=== PATIENT | female | born 1965 | race Caucasian/White ===

== ENCOUNTER 2016-10-11 15:08 | Emergency (ER) | payer OTHER ==
[~2016-10-11] VITALS: Ht 160 cm; Wt 71.7 kg
[~2016-10-11 15:08] MED LIST: ARIPIPRAZOLE10 MG PO; ATIVAN0.5 MG PO; CLONAZEPAM0.5 MG PO; CYCLOBENZAPRINE10 M1 PO; DEPAKOTE ER500 MG PO; HYDROXYZINE PAM50 MG PO; LEVOTHYROXINE75 MCG PO; METHADONE10 MG/5 ML PO; MOBIC7.5 MG PO; NAPROXEN500 MG PO; NEURONTIN300 M1 PO; SEROQUEL XR300 MG PO; SEROQUEL50 MG PO; TRAMADOL HCL50 M1 PO
--- NOTE | 2016-10-11 16:51 | ED GI/GU/ABDOMINAL COMPLAINT ---
History of Present Illness General Chief Complaint: Female Urogenital Problems Stated Complaint: BLADDER HURTS ALL THE TIME PER PT Source: patient Exam Limitations: no limitations Vital Signs & Intake/Output Vital Signs & Intake/Output Vital Signs Date Time Temp Pulse Resp B/P B/P Pulse O2 O2 Flow FiO2 Mean Ox Delivery Rate 10/11 1704 97.8 78 20 110/78 98 Room Air 10/11 1516 97.1 82 18 112/77 97 Room Air Allergies Coded Allergies: Penicillins (HIVES 10/11/16) carbamazepine (From TEGRETOL) (MORE SEIZURES 10/11/16) erythromycin base (VOMITING 10/11/16) latex (RASH 10/11/16) phenytoin (From DILANTIN) (HIVES 10/11/16) Reconcile Medications Buprenorphine (Buprenorphine HCl) 8 MG TAB.SUBL 1 TAB SL BID MENTAL HEALTH ( Reported) Clonazepam 0.5 MG TABLET 1 TAB PO TID ANXIETY (Reported) Dexlansoprazole (Dexilant) 60 MG KOREY.BP 1 CAP PO DAILY GI (Reported) Docusate Sodium (Stool Softener) 50 MG CAPSULE 1 TAB PO BID PRN CONSTIPATION Escitalopram Oxalate 20 MG TABLET 1 TAB PO DAILY DEPRESSION (Reported) Gabapentin (Neurontin) 300 MG CAPSULE 1 CAP PO BID SEIZURES (Reported) Gabapentin 600 MG TABLET 1 TAB PO QPM SEIZURES (Reported) Ibuprofen 600 MG TABLET 1 TAB PO PRN PAIN (Reported) with food Levothyroxine Sodium 75 MCG TABLET 1 TAB PO DAILY THYROID (Reported) Magnesium Citrate (Citrate Of Magnesia) 300 ML SOLUTION 296 ML PO ONCE CONSTIPATION Meloxicam 7.5 MG TABLET 1 TAB PO DAILY PAIN (Reported) Topiramate 100 MG TABLET 1 TAB PO DAILY IMPULSES (Reported) Trazodone HCl 150 MG TABLET 1 TAB PO QPM SLEEP (Reported) Triage Note: PT STATES THAT FOR THE PAST MONTH SHE HAS BEEN HAVING RLQ PAIN THAT RADIATES INTO HER BACK, CLEAR VAGINAL DISCHARGE, DENIES ITCHING OR ODOR. WENT TO DR ALEXANDER SNELL AND HE DID VAGINAL US AND URINE, PT STATES THAT SHE WAS STARTED ON ABT FOR BLADDER INFECTION. PT STATES THAT SHE WAS SUPOSSED TO GO FOR BLOOD WORK AND NEVER DID. PT WOULD LIKE TO BE TESTED FOR HPV Triage Nurses Notes Reviewed? yes ? N Is pt currently ? No Onset: Gradual Duration: constant, getting worse Quality/Severity: sharpness, severe, stabbing Severity Numbers: 10 Location: right lower quadrant Radiation: no radiation Activities at Onset: none HPI: Patient is a 51-year-old female who presents emergency room with concerns of right lower quadrant pain that has progressively gotten worse for the past month. Patient does state that she was recently evaluated by her p EAR NOSE THROAT SURGEON Dr. Barcenas which he obtained a transvaginal ultrasound with results PATIENT: RAMAKRISHNA MARCELO PRESENT AGE: 51 PATIENT ACCOUNT NO: [id number] : 65 LOCATION: [facility] ORDERING PHYSICIAN: COLBY DESHPANDE MD SERVICE DATE: 09/22/16 EXAM TYPE: US - US-TRANSVAGINAL EXAM: Pelvic Ultrasound CLINICAL INDICATION: Pelvic pain. History of ovarian cysts. COMPARISON: Pelvic ultrasound 12/20/2014 TECHNIQUE: The pelvis was evaluated using transabdominal and transvaginal imaging. FINDINGS: The uterus measures 5.5 x 3.0 x 4.3 cm in longitudinal by AP by transverse dimension. The endometrial stripe is not thickened and measures 0.2 cm. Within the posterior uterine fundus is a 2.5 x 1.4 x 2.3 cm fibroid (previously 1.9 x 1.5 x 2.2 cm). The cervix measures approximately 2.4 cm in length. A subcentimeter nabothian cyst is appreciated. The right ovary measures approximately 1.6 x 1.2 x 1.0 cm. 1.1 cm right ovarian cyst. The left ovary was not clearly visualized. There are no abnormal adnexal masses. There is a small amount of free fluid in the pelvis. IMPRESSION: 1. Single 2.5 cm posterior fundal fibroid. Unremarkable endometrial thickness. 2. Small right ovarian cyst. 3. The left ovary was not clearly visualized. Patient states that the right lower quadrant pain has been so significant that she's S friends for narcotics with mild relief of symptoms. Patient denies any fever chills, vaginal bleeding or discharge dysuria hematuria. Patient states that she has chronic back pain and right hip pain with no change in symptoms. (MARCIANO ROGER) Past History Travel History Traveled to [place] past 21 day No Medical History Any Pertinent Medical History? see below for history Neurological: seizure, TBI EENT: cataracts Cardiovascular: CPR DONE ON ME X 3 "HOLE IN MY HEART" BORDERLINE CHOLESTEROL Respiratory: asthma, emphysema Gastrointestinal: ACID REFLUX Hepatic: hepatitis C Renal: NONE Musculoskeletal: NONE Psychiatric: bipolar disease, depression, PTSD Endocrine: hypothyroidism Blood Disorders: anemia Cancer(s): NONE APPAREL MERCHANDISER/Reproductive: fibroid, "I CAN'T HAVE BABIES" Surgical History Surgical History: UTERINE FIBROIDS Psychosocial History Who do you live with Significant Other What is your primary language Setswana Tobacco Use: Never used ETOH Use: denies use Illicit Drug Use: denies illicit drug use Family History Hx Contributory? No (MARCIANO ROGER) Review of Systems Review of Systems Constitutional: Reports: see HPI. EENTM: Reports: no symptoms. Respiratory: Reports: no symptoms. Cardiovascular: Reports: no symptoms. GI: Reports: see HPI, abdominal pain. Genitourinary: Reports: no symptoms. Musculoskeletal: Reports: see HPI, back pain. Skin: Reports: no symptoms. Neurological/Psychological: Reports: no symptoms. Hematologic/Endocrine: Reports: no symptoms. Immunologic/Allergic: Reports: no symptoms. All Other Systems: Reviewed and Negative (MARCIANO ROGER) Physical Exam Physical Exam General Appearance: no apparent distress, alert, comfortable Gastrointestinal: normal bowel sounds, soft, MODERATE RIGHT LOWER QUADRANT POINT TENDERNESS NOTED NO REBOUND TENDERNESS NO PERITONEAL SIGNS Comments: Well-developed well-nourished person in no acute distress HEENT: Normal EENT exam, Neck: Supple, no lymphadenopathy, normal range of motion without pain or tenderness Back: Nontender, no CVA tenderness. Cardiovascular: Regular rate and rhythms no murmurs rubs or gallops, normal JVP Respiratory: Chest nontender. No respiratory distress.breath sounds clear to auscultation bilaterally Extremity: No edema, no calf tenderness to palpation, normal and equal pulses. Neuro: Alert oriented x3, motor sensory normal, Skin: No appreciable rash on exposed skin, skin is warm and dry. Psych: Mood and affect is normal, memory and judgment is normal. Core Measures ACS in differential dx? No Severe Sepsis Present: No Septic Shock Present: No (MARCIANO ROGER) Progress Differential Diagnosis: AAA, AMI, appendicitis, biliary colic, bowel obstruction , colon cancer, cholecystitis, diverticulitis, ectopic , endometritis, esophageal varices, gastritis, hepatitis, hernia, hemorrhoids, ischemic bowel, inflamm bowel dis, intrauterine , kidney stone, Shagufta-Agatha tear, ovarian cyst, ovarian torsion, pancreatitis, PID/cervicitis, peptic ulcer, PUD/ GERD, perforated viscous, SBO, threatened AB, UTI/pyelo Plan of Care: Orders Procedure Date/time Status LIPASE 10/11 164 Complete COMPREHENSIVE METABOLIC PANEL 10/11 164 Complete CBC WITHOUT DIFFERENTIAL 10/11 1648 Complete AMYLASE 10/11 1648 Complete URINALYSIS 10/11 1521 Complete Laboratory Tests 10/11/16 1702: Anion Gap 9, Estimated GFR > 60, BUN/Creatinine Ratio 17.5, Glucose 116 H, Calcium 9.2, Total Bilirubin 0.3, AST 32, ALT 48, Alkaline Phosphatase 76, Total Protein 7.1, Albumin 4.1, Globulin 3.0, Albumin/Globulin Ratio 1.4, Amylase 30, Lipase 77, CBC w Diff NO MAN DIFF REQ, RBC 4.66, MCV 80.1 L, MCH 26.0 L, RDW 14.7 H, MPV 9.3, Gran % 50.6, Lymphocytes % 38.1, Monocytes % 6.7, Eosinophils % 4.2, Basophils % 0.4, Absolute Granulocytes 3.1, Absolute Lymphocytes 2.3, Absolute Monocytes 0.4, Absolute Eosinophils 0.3, Absolute Basophils 0, PUBS MCHC 32.4 L 10/11/16 1530: Urinalysis LIGHT H, Urine Color YEL, Urine Clarity CLEAR, Urine pH 5.5, Ur Specific [place] >= 1.030, Urine Protein NEG, Urine Ketones TRACE H, Urine Nitrite NEG, Urine Bilirubin NEG@ICTO, Urine Urobilinogen 0.2, Ur Leukocyte Esterase TRACE H, Ur Microscopic SEDIMENT EXAMINED, Urine RBC 1-3, Urine WBC RARE, Ur Epithelial Cells FEW, Urine Crystals 1+ CA OX H, Urine Bacteria RARE H, Hyaline Casts 1-3 H, Granular Casts RARE H, Urine Mucus MOD H, Urine Hemoglobin NEG, Urine Glucose NEG Patient currently is in no apparent distress and resting comfortably on bed. Patient had unremarkable blood work CT scan was remarkable for significant constipation appendix is normal. I shall advise patient to discontinue the use of unprescribed narcotic And to begin high-fiber diet and stool softener and laxatives. Patient had requested new primary care doctor establishment which I gave patient the brochure of [facility] practice. (ALONDRA CARRIZALES,MARCIANO) Diagnostic Imaging: Viewed by Me: CT Scan. Radiology Impression: SEE COMMENTS Initial ED EKG: none Comments: PATIENT: RAMAKRISHNA MARCELO PRESENT AGE: 51 PATIENT ACCOUNT NO: [id number] : 65 LOCATION: [facility] ORDERING PHYSICIAN: MARCIANO CARRIZALES SERVICE DATE: 10/11/16 EXAM TYPE: CAT - CT ABD & PELVIS W/O IV CONTRAS EXAMINATION: CT ABDOMEN AND PELVIS WITHOUT CONTRAST CLINICAL INFORMATION: Right lower quadrant pain. History of a right ovarian cyst. COMPARISON: Multiple prior transvaginal ultrasounds, most recent dated 09/22/2016. TECHNIQUE: Multidetector volumetric imaging was performed from the superior aspect of the liver through the pubic symphysis. Sagittal and coronal reformatted images were obtained on the technologist's workstation. DLP: 288.04 mGy-cm FINDINGS: LUNG BASES: There is linear scarring within the right middle lobe. LIVER, GALLBLADDER, AND BILIARY TREE: The liver is normal in size, shape, and attenuation. No focal hepatic lesion or biliary ductal dilatation is present. The gallbladder is unremarkable with no evidence of radiopaque gallstones, gallbladder wall thickening, or obvious pericholecystic inflammatory changes. PANCREAS: Unremarkable. SPLEEN: Unremarkable. ADRENAL GLANDS: Unremarkable. KIDNEYS AND URETERS: The kidneys are normal in size, shape, and attenuation. No hydronephrosis, hydroureter, or calculi seen. No perinephric stranding. BLADDER: Unremarkable. GASTROINTESTINAL TRACT: There is no large or small bowel obstruction. There is a large amount of stool throughout the colon, which could represent a degree of constipation. The appendix is normal. There is no intra-abdominal free air or free fluid. ABDOMINAL WALL: No significant hernia is appreciated. LYMPH NODES: No intra-abdominal adenopathy is identified although evaluation is limited on this noncontrast examination. VASCULAR: The abdominal aorta is nondilated. The IVC is unremarkable. PELVIC VISCERA: The uterus and adnexa are unremarkable. The previously seen adnexal cyst is not identified, although pelvic evaluation is somewhat limited on CT examination. OSSEOUS STRUCTURES: No lytic or blastic osseous lesion. Mild degenerative changes within the lower lumbar facets. IMPRESSION: 1. Prominent stool throughout the colon, which could represent a degree of constipation. No large or small bowel obstruction. 2. Normal appendix. 3. No hydronephrosis or nephrolithiasis. 4. The previously seen adnexal cyst is not identified, although pelvic evaluation is limited on CT examination. (MARCIANO ROGER) Departure Departure Disposition: HOME OR SELF CARE Condition: Stable Clinical Impression Primary Impression: Abdominal pain Secondary Impressions: Constipation Referrals: PATIENT HAS NO PRIMARY CARE DR (PCP/Family) Additional Instructions: As discussed begin the prescription of DOCULSATE FOR stool softener. Begin the prescription of magnesium citrate for improvement of your bowels. Begin drinking plain water for hydration and increase high-fiber diet. Please call the list of [facility] practice providers tomorrow to establish a new doctor. If symptoms worsen return to emergency room. Departure Forms: Customer Survey General Discharge Information Prescriptions: Current Visit Scripts Docusate Sodium (Stool Softener) 1 TAB PO BID PRN CONSTIPATION #20 TAB Magnesium Citrate (Citrate Of Magnesia) 296 ML PO ONCE #296 ML Ref 1 (MARCIANO ROGER) PA/SMALL PARTS SHAPER OPERATOR Co-Sign Statement Statement: ED Attending supervision documentation- [] I saw and evaluated the patient. I have also reviewed all the pertinent lab results and diagnostic results. I agree with the findings and the plan of care as documented in the PA's/SMALL PARTS SHAPER OPERATOR's documentation. [X] I have reviewed the ED Record and agree with the PA's/SMALL PARTS SHAPER OPERATOR's documentation. [] Additions or exceptions (if any) to the PAs/SMALL PARTS SHAPER OPERATOR's note and plan are summarized below: [] (SEMAJ MEDEIROS,DEONDRE)
[2016-10-11] MEDS ORDERED: DEXILANT60 M1 PO (17:00)
[2016-10-11] MEDS ORDERED: GABAPENTIN600 M1 PO (17:00)
[2016-10-11] MEDS ORDERED: CLONAZEPAM0.5 M2 PO (17:00)
[2016-10-11] MEDS ORDERED: IBUPROFEN600 M1 PO (17:01)
[2016-10-11] MEDS ORDERED: BUPRENORPHINE HC8 MG SL (17:01)
[2016-10-11] MEDS ORDERED: MELOXICAM7.5 M1 PO (17:01)
[2016-10-11] MEDS ORDERED: ESCITALOPRAM OX20 MG PO (17:02)
[2016-10-11] MEDS ORDERED: TOPIRAMATE100 M2 PO (17:02)
[2016-10-11] MEDS ORDERED: TRAZODONE HCL150 M1 PO (17:03)
[2016-10-11 17:04] VITALS: BP 110/78
[2016-10-11 17:06] LABS: ABSOLUTE BASOPHIL COUNT 0 /CUMM (0.0-0.2); ABSOLUTE EOSINOPHIL COUNT 0.3 /CUMM (0.0-0.7); ABSOLUTE GRANULOCYTE CT 3.1 /CUMM (1.4-6.5); ABSOLUTE LYMPH COUNT 2.3 /CUMM (1.2-3.4); ABSOLUTE MONOCYTE COUNT 0.4 /CUMM (0.10-0.60); BASOPHIL % 0.4 % (0.0-2.0); EOSINOPHIL % 4.2 % (0-5); GRANULOCYTE % 50.6 % (42.2-75.2); HEMATOCRIT 37.4 % (37-47); MEAN CORPUSCULAR HGB CONC 32.4 G/DL (33.0-37.0); MEAN CORPUSCULAR VOLUME 80.1 FL (81.0-99.0); MEAN PLATELET VOLUME 9.3 FL (7.4-10.4); PLATELET COUNT 152 /CUMM (130-400); RBC DISTRIBUTION WIDTH 14.7 % (11.5-14.5); RED BLOOD CELL CT 4.66 /CUMM (4.20-5.40)
--- NOTE | 2016-10-11 18:16 | CT SCAN REPORT ---
EXAMINATION: CT ABDOMEN AND PELVIS WITHOUT CONTRAST CLINICAL INFORMATION: Right lower quadrant pain. History of a right ovarian cyst. COMPARISON: Multiple prior transvaginal ultrasounds, most recent dated 09/22/2016. TECHNIQUE: Multidetector volumetric imaging was performed from the superior aspect of the liver through the pubic symphysis. Sagittal and coronal reformatted images were obtained on the technologist's workstation. DLP: 288.04 mGy-cm FINDINGS: LUNG BASES: There is linear scarring within the right middle lobe. LIVER, GALLBLADDER, AND BILIARY TREE: The liver is normal in size, shape, and attenuation. No focal hepatic lesion or biliary ductal dilatation is present. The gallbladder is unremarkable with no evidence of radiopaque gallstones, gallbladder wall thickening, or obvious pericholecystic inflammatory changes. PANCREAS: Unremarkable. SPLEEN: Unremarkable. ADRENAL GLANDS: Unremarkable. KIDNEYS AND URETERS: The kidneys are normal in size, shape, and attenuation. No hydronephrosis, hydroureter, or calculi seen. No perinephric stranding. BLADDER: Unremarkable. GASTROINTESTINAL TRACT: There is no large or small bowel obstruction. There is a large amount of stool throughout the colon, which could represent a degree of constipation. The appendix is normal. There is no intra-abdominal free air or free fluid. ABDOMINAL WALL: No significant hernia is appreciated. LYMPH NODES: No intra-abdominal adenopathy is identified although evaluation is limited on this noncontrast examination. VASCULAR: The abdominal aorta is nondilated. The IVC is unremarkable. PELVIC VISCERA: The uterus and adnexa are unremarkable. The previously seen adnexal cyst is not identified, although pelvic evaluation is somewhat limited on CT examination. OSSEOUS STRUCTURES: No lytic or blastic osseous lesion. Mild degenerative changes within the lower lumbar facets. IMPRESSION: 1. Prominent stool throughout the colon, which could represent a degree of constipation. No large or small bowel obstruction. 2. Normal appendix. 3. No hydronephrosis or nephrolithiasis. 4. The previously seen adnexal cyst is not identified, although pelvic evaluation is limited on CT examination.
[2016-10-11] MEDS ORDERED: STOOL SOFTENER50 MG PO (18:32)
[2016-10-11] MEDS ORDERED: CITRATE OF MAG300 ML PO (18:32)
== END 2016-10-11 18:40 ==
LOC: ERH 15:08
PROVIDERS: Physician Assistant
DX: K59.00 Constipation, unspecified (principal)
CPT/HCPCS: 74176; 81001